=== PATIENT | female | born 1950 | race Caucasian/White ===

== ENCOUNTER → 2017-03-11 14:12 | Outpatient (CLI) | payer BC ==
[2014-12-21 00:24] VITALS: BMI 30.7
[~2017-03-11 14:12] MED LIST: ASCORBIC ACID500 MG PO; ASPIRIN325 MG PO; BIOTIN5 MG PO; CALTRATE 600 M600 M1 PO; COREG6.25 MG PO; FISH OIL 1,2001 CAP PO; HYZAAR 100-12.51 TAB PO; IBUPROFEN600 MG PO; LASIX20 MG PO; LEVOXYL25 MCG PO; NORVASC5 MG PO; PREMARIN0.625 MG PO; PROTONIX40 MG PO; TIMOPTIC 0.5 % O5 ML EACH EYE; [UNRECOGNIZED DRUG - OTHER] EACH EYE
== END | disposition home or self-care (01) ==
LOC: D.MAMMO 03-10 09:15
DX: Z12.31 Encounter for screening mammogram for malignant neoplasm of breast (principal)

== ENCOUNTER → 2018-03-11 19:17 | Outpatient (CLI) | payer MEDICARE ==
[2014-12-21 00:24] VITALS: BMI 30.7
== END | disposition home or self-care (01) ==
LOC: D.MAMMO 09:00
DX: Z12.31 Encounter for screening mammogram for malignant neoplasm of breast (principal)

== ENCOUNTER 2019-03-12 20:06 | Outpatient (CLI) | payer MEDICARE ==
[2014-12-21 00:24] VITALS: BMI 30.7
== END 2019-03-12 20:08 | disposition home or self-care (01) ==
LOC: D.MAMMO 20:06
PROVIDERS: ATTEND Family Medicine
DX: Z12.31 Encounter for screening mammogram for malignant neoplasm of breast (principal)

== ENCOUNTER → 2020-05-03 21:00 | Outpatient (CLI) | payer MEDICARE ==
[2014-12-21 00:24] VITALS: BMI 30.7
== END | disposition home or self-care (01) ==
LOC: D.MAMMO 03-15 09:00
PROVIDERS: ATTEND Family Medicine
DX: Z12.31 Encounter for screening mammogram for malignant neoplasm of breast (principal)

== ENCOUNTER 2021-05-30 14:10 | Outpatient (CLI) | payer MEDICARE, BC ==
[2014-12-21 00:24] VITALS: BMI 30.7
== END 2021-05-30 23:59 | disposition home or self-care (01) ==
LOC: D.MAMMO 14:10
PROVIDERS: ATTEND Student in an Organized Health Care Education/Training Program
DX: Z12.31 Encounter for screening mammogram for malignant neoplasm of breast (principal)